=== PATIENT | male | born 1980 | race Caucasian/White ===

== ENCOUNTER 2023-06-13 22:37 | Emergency (ER) | payer SELFPAY ==
[~2023-06-13] VITALS: Ht 180.3 cm; Wt 82.0 kg
[2023-06-13 23:03] VITALS: BP 123/82; PULSE 77; RESP 16; TEMP 98.3; O2SAT 99
[2023-06-13] MEDS ORDERED: KETOROLAC 60MG/2ML VIAL IM STA (23:25)
[2023-06-13] MEDS ORDERED: MAGNESIUM/ALUMINUM HYDROXIDE/SIMETHICONE 30ML UDC PO STA (23:25)
== END 2023-06-14 02:17 | disposition left against medical advice (07) ==
LOC: ER 22:48
DX: R10.84 Generalized abdominal pain (principal); E11.9 Type 2 diabetes mellitus without complications
CPT/HCPCS: 82962; 99283